=== PATIENT | male | born 1975 | race Caucasian/White ===

== ENCOUNTER 2023-03-20 06:24 | Day surgery (SDC) | payer OTHER ==
[2023-03-17 10:07] LABS: Absolute Lymphocytes (CBC) 2.6 K/uL (0.7-4.9); Hematocrit 48.7 % (39.6-49.0); Lymphocytes % 28.4 % (15.3-44.8); MCV 91.2 fL (80-100); MPV 6.9 fL (7.6-11.3); Platelets 302 thou/uL (152-406); RBC Red Blood Cell Count 5.34 M/uL (4.33-5.43)
[2023-03-17 10:18] LABS: Potassium 4.1 mEq/L (3.5-5.1)
[2023-03-17 10:20] LABS: Protime INR 0.96
--- NOTE | 2023-03-17 10:39 | RAD REPORT ---
EXAM DESCRIPTION: RAD - Chest Pa And Lat (2 Views) - 03/17/2023 10:01 am CLINICAL HISTORY: pre op for surgery COMPARISON: No comparisons FINDINGS: Lines: None. Lungs: No evidence of edema or pneumonia. Pleural: No significant pleural effusions or pneumothorax. Cardiac: The heart size is within normal limits. Mediastinum: Within normal limits. Bones: No acute fractures. Other: None IMPRESSION: No acute cardiopulmonary disease.
--- NOTE | 2023-03-17 17:48 | EKG ---
Test Date: 2023-03-17 Test Time: 10:48:14 Analyst Business Analysis: VJ MEASUREMENT RESULTS: Intervals: Rate: 77 AR: 142 QRSD: 106 QT: 354 QTc: 400 [place]: P: 33 AR: 142 QRS: -26 T: 56 INTERPRETIVE STATEMENTS: Normal sinus rhythm Normal ECG No previous ECG available for comparison Electronically Signed On 03-17-23 17:47:42 RATING SPECIALIST by Walt Parker
[2023-03-20] MEDS ORDERED: NA CHLORIDE 0.9% 1,000 ML ONE (06:43)
[2023-03-20] MEDS ORDERED: CEFAZOLIN SODIUM 2 GM/VIAL ONE (06:43)
[2023-03-20] MEDS ORDERED: dexAMETHasone 10 MG/ML VIAL ONE ×2 (07:03→07:43)
[2023-03-20] MEDS ORDERED: FENTANYL CITR 100 MCG/2 ML ONE (07:04)
[2023-03-20] MEDS ORDERED: LIDOCAINE 1% MPF 5 ML VIAL ONE (07:04)
[2023-03-20] MEDS ORDERED: MIDAZOLAM HCL 2 MG/2 ML INJ ONE (07:04)
[2023-03-20] MEDS ORDERED: EPINEPHRINE 1 MG/ML VIAL ONE ×2 (07:04→07:52)
[2023-03-20] MEDS ORDERED: LIDOCAINE 2% MPF 5 ML VIAL ONE (07:43)
[2023-03-20] MEDS ORDERED: ROCURONIUM 50 MG/5 ML VIAL IV ONE (07:43)
[2023-03-20] MEDS ORDERED: KETOROLAC 30 MG/ML INJ ONE (07:43)
[2023-03-20] MEDS ORDERED: propofoL 200 MG/20 ML VIAL IV ONE (07:43)
[2023-03-20] MEDS ORDERED: ONDANSETRON 4 MG/2 ML VIAL ONE (07:43)
[2023-03-20] MEDS ORDERED: TRIAMCINOLONE ACETON 40 MG/ML VIAL ONE (09:00)
[2023-03-20] MEDS ORDERED: BUPIVACAINE 0.25% PF 10 ML VIAL ONE (09:01)
--- NOTE | 2023-03-20 09:52 | P.BOP ---
Preoperative diagnosis: right shoulder adhesive capsulitis Postoperative diagnosis: same Primary procedure: right shoulder manipulation under anesthesia Secondary procedure: right shoulder arthroscopic lysis of adhesions Cardiac Specialist: NONE,NONE Estimated blood loss: 5 cc Specimen: none Findings: see dictation Anesthesia: General Complications: None Implants: none Fluids & blood products: per anesthesia record Transferred to: Recovery Room Condition: Good
--- NOTE | 2023-03-20 11:09 | RAD REPORT ---
EXAM DESCRIPTION: Shoulder 1 View - 03/20/2023 10:02 am CLINICAL HISTORY: S/P MANIPULATION UA, KAYLENE COMPARISON: No comparisons TECHNIQUE: Single view of the right shoulder. FINDINGS: There is no fracture or dislocation. AC joint is normal in appearance. No acute or suspici ous findings. Probable atelectasis versus small effusion at the right lung base. IMPRESSION: Unremarkable right shoulder radiograph. Probable atelectasis versus small effusion at the right lung base.
[2023-03-20 12:45] VITALS: BP 138/82; TEMP 97.1; O2SAT 97
== END 2023-03-20 11:50 | disposition home or self-care (01) ==
LOC: OR 06:24
PROVIDERS: ATTEND Orthopaedic Surgery Sports Medicine
PROC: 0RNJ4ZZ Release Right Shoulder Joint, Percutaneous Endoscopic Approach (ICD-10-PCS; principal; 2023-03-20 08:00)
DX: M75.01 Adhesive capsulitis of right shoulder (principal)
CPT/HCPCS: 93005; 85025; 80048; 36415; 85610; 82947 ×2; 85730; 71046; 73020; 29825; J2704; J3301; J2001 ×2; J2250; J3010; J1100 ×2; J0171 ×2; J2405; J7030

== ENCOUNTER 2024-01-19 22:18 | Emergency (ER) | payer OTHER ==
--- NOTE | 2024-01-19 22:45 | EDPHYS ---
Physician Documentation [facility] – [place], [place] Name: Michele Zepeda Age: 48 yrs Sex: Male : 1975 Arrival Date: 01/19/2024 Time: 22:18 Bed 20 Private MD: ED Physician Bautista Aguillon HPI: 01/18 22:26 This 48 yrs old Male presents to ER via Unassigned with complaints of Hand Injury. kb 22:26 Pt is a 48 year old male who presents for left hand pain after using fist to strike a wall around 2000 tonight. Denies any other injuries. Historical: - Allergies: 23:09 No Known Allergies; jb4 - PMHx: 23:09 diabetes mellitus; Hypothyroidism; jb4 - PSHx: 23:09 reynaldo eyes; Reynaldo Shoulders; testicles; jb4 - Immunization history:: Adult Immunizations up to date. - Infectious Disease History:: Denies. - Social history:: Smoking status: Patient reports the use of cigarette tobacco products, cigars, Patient uses alcohol, occasionally. ROS: 22:27 Constitutional: As per HPI kb Exam: 22:27 Constitutional: This is a well developed, well nourished patient who is awake, alert, kb and in no acute distress. Head/Face: Normocephalic, atraumatic. ENT: Moist Mucous membranes Cardiovascular: Regular rate Respiratory: Respirations even and unlabored. No increased work of breathing. Talking in full sentences Skin: Warm, dry with normal turgor. Normal color. Neuro: Awake and alert, GCS 15, oriented to person, place, time, and situation. 22:32 Musculoskeletal/extremity: Extremities: grossly normal except: noted in the dorsum of kb left hand: decreased ROM, pain, swelling, tenderness, ROM: limited active range of motion, Circulation is intact in all extremities. Sensation intact. Vital Signs: 23:08 BP 136 / 71; Pulse 83; Resp 16; Temp 97.5(TE); Pulse Ox 98% on R/A; jb4 MDM: 22:24 Medical Screening Exam initiated kb 22:43 Differential diagnosis: dislocation, closed fracture, contusion. Data reviewed: vital kb signs, nurses notes. Independent interpretation of the following test(s) in the Emergency Department X-Ray: My interpretation is displaced fracture fifth metacarpal left hand. Historians other than the Patient: Spouse/Significant Other: . Counseling: I had a detailed discussion with the patient and/or guardian regarding the historical points, exam findings, and any diagnostic results supporting the discharge/admit diagnosis, radiology results, the need for outpatient follow up, a orthopedic surgeon, to return to the emergency department if symptoms worsen or persist or if there are any questions or concerns that arise at home. 01/18 22:28 Order name: Hand Left 3 View XRAY kb 01/18 22:43 Order name: Ulnar Gutter splint; Complete Time: 23:08 kb Administered Medications: 23:07 Drug: HYDROcodone-acetaminophen PO 5 mg-325 mg 1 tabs PO once Route: PO; jb4 23:23 Follow up: Response: No adverse reaction jb4 23:08 Drug: Ketorolac IM 30 mg IM once Route: IM; Site: right deltoid; jb4 23:23 Follow up: Response: No adverse reaction; Marked relief of symptoms jb4 Disposition Summary: 01/19/24 22:44 Discharge Ordered Notes: Location: Home kb Condition: Stable kb Diagnosis - Displaced fracture of shaft of fifth metacarpal bone, left hand kb Followup: kb - With: Emergency Department - When: As needed - Reason: Worsening of condition Followup: kb - With: Private Physician - When: 2 - 3 days - Reason: Recheck today's complaints, Continuance of care, Re-evaluation by your physician Discharge Instructions: - Discharge Summary Sheet kb - Boxer's Fracture kb Forms: - Medication Reconciliation Form kb - Antibiotic Education kb - Prescription Opioid Use kb - Patient Portal Instructions kb - Leadership Thank You Letter kb Prescriptions: - Diclofenac Sodium 75 mg Oral tablet, delayed release (enteric coated) - take 1 tablet ORAL route 2 times per day As needed; 30 tablet; Refills: 0, kb Product Selection Permitted Signatures: Dispatcher [employer] Franchesca Ayala, SANDOVAL LOCK-Dg Leonard, RN RN jb4 Corrections: (The following items were deleted from the chart) 23:13 22:28 Ice pack ordered. kb jb4
[2024-01-19] MEDS ORDERED: HYDROCODONE/APAP 5/325 MG TAB ONE (23:01)
[2024-01-19] MEDS ORDERED: KETOROLAC 30 MG/ML INJ ONE (23:01)
--- NOTE | 2024-01-19 23:24 | ER ---
Nurse's Notes [facility] Name: Michele Zepeda Age: 48 yrs Sex: Male : 1975 Arrival Date: 01/19/2024 Time: 22:18 Bed 20 Private MD: Diagnosis: Displaced fracture of shaft of fifth metacarpal bone, left hand Presentation: 01/18 23:08 Chief complaint: Patient states: I punched a ball and broke my left pinky. Coronavirus jb4 screen: At this time, the client does not indicate any symptoms associated with coronavirus-19. Ebola Screen: No symptoms or risks identified at this time. Initial Sepsis Screen: Does the patient meet any 2 criteria? No. Patient's initial sepsis screen is negative. Does the patient have a suspected source of infection? No. Patient's initial sepsis screen is negative. Risk Assessment: Do you want to hurt yourself or someone else?. Onset of symptoms was January 19, 2024. Transition of care: patient was not received from another setting of care. 23:08 Method Of Arrival: Ambulatory jb4 23:08 Acuity: JULIANNA 4 jb4 Historical: - Allergies: 23:09 No Known Allergies; jb4 - PMHx: 23:09 diabetes mellitus; Hypothyroidism; jb4 - PSHx: 23:09 reynaldo eyes; Reynaldo Shoulders; testicles; jb4 - Immunization history:: Adult Immunizations up to date. - Infectious Disease History:: Denies. - Social history:: Smoking status: Patient reports the use of cigarette tobacco products, cigars, Patient uses alcohol, occasionally. Screenin:10 [facility] ED Fall Risk Assessment (Adult) History of falling in the last 3 months, jb4 including since admission No falls in past 3 months (0 pts) Confusion or Disorientation No (0 pts) Intoxicated or Sedated No (0 pts) Impaired Gait No (0 pts) Mobility Assist Device Used No (0 pt) Altered Elimination No (0 pt) Score/Fall Risk Level 0 - 2 = Low Risk Oriented to surroundings, Maintained a safe environment. Abuse screen: Denies threats or abuse. Nutritional screening: No deficits noted. Tuberculosis screening: No symptoms or risk factors identified. Assessment: 23:10 General: Appears in no apparent distress. comfortable, Behavior is calm, cooperative, jb4 appropriate for age. Pain: Complains of pain in left hand Pain does not radiate. Pain currently is 9 out of 10 on a pain scale. Neuro: Level of Consciousness is awake, alert, obeys commands, Oriented to person, place, time, situation. Cardiovascular: Patient's skin is warm and dry. Respiratory: Airway is patent Respiratory effort is even, unlabored, Respiratory pattern is regular, symmetrical. Derm: Skin is intact, Skin is pink, warm \T\ dry. Musculoskeletal: Circulation, motion, and sensation intact. Range of motion: intact in all extremities. Vital Signs: 23:08 BP 136 / 71; Pulse 83; Resp 16; Temp 97.5(TE); Pulse Ox 98% on R/A; jb4 ED Course: 22:20 Patient arrived in ED. jj6 22:24 Franchesca Murray FNP-C [facility]. kb 22:24 Bautista Aguillon MD is Attending Physician. kb 22:41 Hand Left 3 View XRAY In Process Unspecified. EDMS 23:09 Triage completed. jb4 23:09 Arm band placed on right wrist. jb4 23:10 Patient has correct armband on for positive identification. Bed in low position. Call jb4 light in reach. Side rails up X 1. Provided Education on: plan of care. 23:10 No provider procedures requiring assistance completed. Patient did not have IV access jb4 during this emergency room visit. Administered Medications: 23:07 Drug: HYDROcodone-acetaminophen PO 5 mg-325 mg 1 tabs PO once Route: PO; jb4 23:23 Follow up: Response: No adverse reaction jb4 23:08 Drug: Ketorolac IM 30 mg IM once Route: IM; Site: right deltoid; jb4 23:23 Follow up: Response: No adverse reaction; Marked relief of symptoms jb4 Medication: 23:10 VIS not applicable for this client. jb4 Outcome: 22:44 Discharge ordered by . kb 23:23 Discharged to home ambulatory, with family, jb4 23:23 Condition: stable 23:23 Discharge instructions given to patient, Instructed on discharge instructions, follow up and referral plans. medication usage, Demonstrated understanding of instructions, follow-up care, medications, Prescriptions given X 1, 23:23 Patient left the ED. jb4 Signatures: Dispatcher [employer] EDFL Franchesca Murray FNP-C FNP-Ckb Bryson, James RN RN jb4 Khalida Wilson jj6 Corrections: (The following items were deleted from the chart) 23:14 23:08 BP 136 / 71; Pulse 83bpm; Resp 16bpm; Pulse Ox 98% RA; jb4 jb4
--- NOTE | 2024-01-20 06:31 | RAD REPORT ---
EXAM: XR Left Hand Complete, 3 or More Views CLINICAL HISTORY: Pain. TECHNIQUE: Frontal, lateral and oblique views of the left hand. COMPARISON: No relevant prior studies available. FINDINGS: Bones/joints: Mildly comminuted fifth metacarpal distal metadiaphyseal/neck fracture with apex dors al angulation at the fracture site. No dislocation. Soft tissues: Adjacent soft tissue swelling. No radiopaque foreign body. IMPRESSION: Fifth metacarpal fracture. Electronically signed by: Kari Cintron MD 01/19/2024 11:28 PM [facility] Due to temporary technical issues with the PACS/[employer] reporting system, reports are being jaxon d by the in-house radiologist without review as a courtesy to ensure prompt reporting the interpreting radiologist is fully responsible for the content of the report. Transcribed Date/Time: 01/20/2024 6:31 AM
[2024-01-20 06:50] VITALS: BP 136/71; TEMP 97.5; O2SAT 98
== END 2024-01-19 23:23 | disposition home or self-care (01) ==
LOC: ER 22:18
PROC: 2W3FX1Z Immobilization of Left Hand using Splint (ICD-10-PCS; principal; 2024-01-19)
DX: S62.327A Displaced fracture of shaft of fifth metacarpal bone, left hand, initial encounter for closed fracture (principal); Z72.0 Tobacco use
CPT/HCPCS: 96372; 99284